=== PATIENT | male | born 1950 | race Caucasian/White ===

== ENCOUNTER → 2017-03-27 | Day surgery (SDC) | payer OTHER, MEDICARE ==
[~2017-03-27] VITALS: Ht 177.8 cm; Wt 74.8 kg
[~2017-03-27] MED LIST: ASPIRIN81 M4 PO; CENTRUM SILVER1 EAC4 PO; CHOLESTYRAMINE378 GM PO; CO Q-10300 MG PO; CONCERTA36 M1 PO; COZAAR50 M1 PO; FLAXSEED OIL1000 M2 PO; LIPITOR40 M1 PO; LOPERAMIDE2 M2 PO; MAGNESIUM400 M1 PO; NIACIN500 M6 PO; PROTOPIC100 G1 TOP; SALMON OIL 1,01 EACH PO; SAW PALMETTO450 M1 PO; SUPER B COMPLE150 MG PO; VITAMIN D1000 UNIT PO
--- NOTE | 2017-03-27 10:29 | Operative Report ---
Operative/Inv Procedure Report Surgery Date: 03/27/17 Name of Procedure: Stage I sacral nerve stimulator implant Placement of tined electrode into left third sacral foramen Pre-Operative Diagnosis: Fecal incontinence Post-Operative Diagnosis: Fecal incontinence Estimated Blood Loss: kathryn Surgeon/Brusher Machine: Dev Tello Jr., DO Anesthesia: local monitored anesthesi, block Monitors: Per routine Implants: Tined electrode into the third sacral foramen Drains: None Specimens: None Complications: None Condition: Good Operative Indication: This is a 67-year-old gentleman with moderate to severe fecal incontinence presents today for stage I sacral nerve stimulator Operative/Procedure Note Note: Patient was taken to the operating room placed in the prone position on the operating room table. He received IV antibiotics. The lumbar sacral and gluteal area was prepped and draped in usual fashion. Next using fluoroscopy we identified the important landmarks. The area overlying the third sacral foramen on both sides was anesthetized. We initially cannulated the right side had fair motor response to stimulation. Next we tried the third sacral foramen on the left side and had a much more pronounced motor response with good perineal brian in good toe flexion on the left side. A max in the skin was made adjacent to the procedure wire. The stiff wire was placed through the lumen of the seizure wire which was then removed. The dilating trocar was passed over this stiff wire. Good positioning was confirmed with both PA and lateral x-rays of the sacrum. Next the tined electrode was passed through the trocar. Once the tined electrode was appropriately positioned the trocar was slowly removed engaging the tines. Another x-ray was performed and positioning was excellent. A pocket was formed in the upper outer quadrant of the left gluteal area. The tissue between the insertion site and the pocket was anesthetized with local anesthetic. The tunneling ice was used to connect the 2 spaces and electrode was passed into the pocket. The tined electrode was then connected to the temporary percutaneous wire. In the rubber boot was used to cover this coupling. The rubber boot was secured with 2 2-0 silk sutures. The tunneling device was then used to tunnel the temporary wire to an exit point on the other side of the lumbar area. At this point I closed the incisions. The pocket incision was closed first with interrupted 30 Vicryls in the deep dermis and running subcuticular 4-0 Monocryl. The 2 puncture sites were closed with subcuticular 4-0 Monocryl. Mastisol Steri-Strips were placed over the incisions. Occlusive dressings were then placed. The patient tolerated the procedure well was converted to supine and taken the recovery area in good condition. At the end this operational needle sponges and attachments were accounted for. Findings: Electode wire in left third sacral foramen Excellent great toe and Bellow's response at all contact points Discharge Disposition: PACU
--- NOTE | 2017-03-27 16:37 | RADIOLOGY REPORT ---
EXAMINATION: Intraoperative fluoroscopy CLINICAL INFORMATION: Sacral stimulator placement COMPARISON: None. TECHNIQUE: Intraoperative fluoroscopy was provided for use by Dr. Tello. A total of 6 images were saved to PACS. TOTAL FLUOROSCOPIC TIME: 0.7 minutes FINDINGS\E\IMPRESSION: Intraoperative fluoroscopy provided for use by Dr. Tello. Please see operative note for detailed findings. .
== END ==
LOC: STS 02:55
DX: R15.9 Full incontinence of feces (principal); I10 Essential (primary) hypertension; I25.10 Atherosclerotic heart disease of native coronary artery without angina pectoris; Z79.82 Long term (current) use of aspirin; K21.9 Gastro-esophageal reflux disease without esophagitis
CPT/HCPCS: 72100; C1778; C1894; J0690; J1885; J2250

== ENCOUNTER → 2017-04-10 | Day surgery (SDC) | payer OTHER, MEDICARE ==
--- NOTE | 2017-04-10 09:49 | Operative Report ---
Operative/Inv Procedure Report Surgery Date: 04/10/17 Name of Procedure: Stage II InterStim/ placement of sacral nerve stimulator implant Pre-Operative Diagnosis: Fecal incontinence Post-Operative Diagnosis: Fecal incontinence Estimated Blood Loss: scant Surgeon/Cabin Cleaner: eDv Tello Jr., DO Anesthesia: local monitored anesthesi, block Monitors: per routine Implants: InterStim/sacral nerve stimulator Specimens: None Complications: None Condition: Good Operative Indication: This is a 67-year-old woman with severe fecal incontinence and fecal urgency. 2 weeks ago he had a stage I sacral nerve stimulator implant trial. Patient has had excellent results with greater than 50% reduction in his symptoms and fecal incontinent episodes. Today he presents for the permanent implant Operative/Procedure Note Note: Patient was taken to the operating room and placed in the prone position on the operating room table. He received IV antibiotics and then IV sedation. The left lumbar gluteal sacral area was prepped and draped in usual fashion. Next a block was performed using 0.5% Marcaine with epinephrine. The previous incision was opened with a scalpel superficially. I bluntly the underlying tissues until I encountered the wire. The coupling device was pulled out of the incision the rubra booty was removed and the permanent wire was from the percutaneous temporary wire by unscrewing the coupling device. The percutaneous wire was pulled out the exit incision. At this point I created a larger pocket using electrocautery both under the superior and inferior flap of skin. Once the pocket was adequate in size the device was connected to the tined electrode wire. The device was placed into the pocket. The device was tested and appeared to be working well. At this point I closed the incision in 2 layers. First a deep dermal interrupted 3-0 Vicryl layer. Next a subcuticular 4-0 Monocryl layer. The skin was then cleansed and dried. Mastisol Steri-Strips were applied. A sterile occlusive dressing was then applied. Patient tolerated the procedure well was converted to supine and then taken to the recovery area in good condition. At the end this operational needle sponges and measurements were accounted for. Findings: Device responding appropriately Discharge Disposition: PACU
== END ==
LOC: STS 02:32
DX: R15.9 Full incontinence of feces (principal); I25.10 Atherosclerotic heart disease of native coronary artery without angina pectoris; I10 Essential (primary) hypertension; G47.33 Obstructive sleep apnea (adult) (pediatric)
CPT/HCPCS: C1767; C1787; J0690; J2250